=== PATIENT | female | born 1955 | race African-American/Black ===

== ENCOUNTER 2016-12-11 07:41 | Emergency (ER) | payer OTHER ==
[~2016-12-11] VITALS: Ht 165.1 cm; Wt 92.0 kg
[~2016-12-11 07:41] MED LIST: ACET325S8 PO; GLUC10TA3 PO; LOVA10TA PO; METF850T PO; ONDA4 PO; PRIL20CA PO; Z.0.UNKNOWN
[2016-12-11 07:43] VITALS: BP 184/91; PULSE 84; RESP 16; TEMP 98.4; O2SAT 98
[2016-12-11] MEDS ORDERED: LOVA10TA PO (08:03)
[2016-12-11] MEDS ORDERED: METF850T PO (08:03)
[2016-12-11] MEDS ORDERED: GLIP10TA6 PO (08:03)
--- NOTE | 2016-12-11 08:31 | PD ---
HPI Chief Complaint: Fall Time Seen by Provider: 08:23 Travel History International Travel<30 days: No Contact w/Intl Traveler<30days: No Traveled to known affect area: No History of Present Illness HPI 61yo F with PMH of DM presents to the ED with c/o left knee and hip pain s/p slip and fall 2 days ago. States her left knee bend backwards. Denies any head trauma, LOC, chest pain, sob, n/v, abdominal pain, focal weakness or numbness. Pt has been able to ambulate but with pain. Pt had previous ligament surgery in left knee. PFSH Past Medical History Arthritis: Yes Heart Rhythm Problems: No Cancer: No Cardiac Catheterization: No Cardiovascular Problems: Yes High Cholesterol: Yes Chest Pain: Yes Congestive Heart Failure: No Diabetes: Yes Patient Takes Glucophage: Yes Diminished Hearing: No Endocrine: Yes Gastrointestinal Disorders: Yes Genitourinary: No Hypertension: No Implanted Vascular Access Dvce: Yes Musculoskeletal: Yes Neurologic: Yes Psychiatric: No Reproductive: No Respiratory: No Migraines: Yes ?: Not Past Surgical History Coronary Artery Bypass Graft: No Gynecologic Surgery: Yes (TUBAL) Joint Replacement: Yes (LEFT KNEE) Other Surgery: Yes Family History Family Myocardial Infarction: Yes Social History Alcohol Use: No Tobacco Use: No Substance Use: No Allergies-Medications (Allergen,Severity, Reaction): Coded Allergies: No Known Allergies (Verified , 09/14/12) Reported Meds & Prescriptions Reported Meds & Active Scripts Active Reported Lovastatin 10 Mg Tab 10 Mg PO HS Glipizide 10 Mg Tab 10 Mg PO BIDAC Take 30 minutes before a meal Metformin (Metformin HCl) 850 Mg Tab 850 Mg PO TIDPC With meals Review of Systems Except as stated in HPI: all other systems reviewed are Neg Physical Exam Narrative GENERAL: 61yo F in mild distress. SKIN: Focused skin assessment warm/dry. HEAD: Atraumatic. Normocephalic. EYES: Pupils equal and round. No scleral icterus. No injection or drainage. ENT: No nasal bleeding or discharge. Mucous membranes pink and moist. NECK: Trachea midline. No JVD. CARDIOVASCULAR: Regular rate and rhythm. No murmur appreciated. RESPIRATORY: No accessory muscle use. Clear to auscultation. Breath sounds equal bilaterally. GASTROINTESTINAL: Abdomen soft, non-tender, nondistended. No rebound tenderness or guarding. MUSCULOSKELETAL: Left knee: Previous surgical scar. +TTP lateral aspect. Decreased ROM. Sensation intact. Distal pulses intact. NEUROLOGICAL: Awake and alert. No obvious cranial nerve deficits. Motor grossly within normal limits. Normal speech. PSYCHIATRIC: Appropriate mood and affect; insight and judgment normal. Data Data Last Documented VS Vital Signs Date Time Temp Pulse Resp B/P (MAP) Pulse Ox O2 Delivery O2 Flow Rate FiO2 12/11/16 07:43 98.4 84 16 184/91 (122) 98 Orders Orders Knee, Ltd (1 Or 2vws) (12/11/16 ) Acetamin-Hydrocod 325-5 Mg ([place] 5-325 (12/11/16 08:45) Hip, Uni(Ap&Lat) W Ap Pelvis (12/11/16 ) Ketorolac Inj (Toradol Inj) (12/11/16 11:00) MDM Medical Decision Making Medical Screen Exam Complete: Yes Emergency Medical Condition: Yes Interpretation(s) Last Impressions Knee X-Ray 12/11/16 0000 Signed Impressions: Service Date/Time: Sunday, December 11, 2016 09:00 - CONCLUSION: Degenerative change. Laurent Allan MD Hip and Pelvis X-Ray 12/11/16 0000 Signed Impressions: Service Date/Time: Sunday, December 11, 2016 08:56 - CONCLUSION: No acute disease. Laurent Allan MD Differential Diagnosis Fracture vs. contusion vs. arthritis Narrative Course 61yo F left knee pain and hip pain after falling 2 days ago. Pt is able to ambulate on it after. No other injuries. Xray left hip negative. Xray left knee showed degenerative change. Pt given toradol and lortab with improvement of pain. Pt has an immobilizer already. Instructed pt to follow up with PMD or orthopedic if pain persists. Diagnosis Primary Impression: Fall Qualified Codes: W19.XXXA - Unspecified fall, initial encounter Referrals: Dejuan Norris MD as needed Patient Instructions: General Instructions Departure Forms: Tests/Procedures Additional Instructions: Please follow up with orthopedic surgery for further evaluation if pain persists. Return to the ED if symptoms worsen. Med/Other Pt SpecificInfo: Prescription(s) given Scripts Hydrocodone-Acetaminophen (Lortab) 5-325 Mg Tab 1 TAB PO Q6H Y for PAIN, #7 TAB 0 Refills Prov: Chiqui Sams DO 12/11/16 Disposition: 01 DISCHARGE HOME Condition: Stable Chiqui Sams DO Dec 11, 2016 08:31
[2016-12-11] MEDS ORDERED: ACETAMINOPHEN/HYDROcodone 325 MG/5 MG TAB PO ONE (08:45)
--- NOTE | 2016-12-11 09:24 | RADRPT ---
EXAM DATE/TIME: 12/11/2016 08:56 [facility] COMPARISON: No previous studies available for comparison. INDICATIONS : Left anterior hip pain, fell MEDICAL HISTORY : Arthritis. SURGICAL HISTORY : Left knee ligament repair ENCOUNTER: Initial ACUITY: 3 days PAIN SCORE: 1/10 LOCATION: Left Hip FINDINGS: Examination of the left hip was performed with AP Pelvis. The primary and secondary trabecular patte rn of the femoral neck is intact. The hip joint is of normal width without significant sclerosis or bony hypertrophy. The acetabulum is grossly intact. There is mild hypertrophic change seen adjacent to the lateral aspect of the greater trochanter. Calcifications are seen in the pelvis likely related to phleboliths. CONCLUSION: No acute disease. Laurent Allan MD on December 11, 2016 at 9:21 Board Certified Radiologist. This report was verified electronically.
--- NOTE | 2016-12-11 09:25 | RADRPT ---
EXAM DATE/TIME: 12/11/2016 09:00 [facility] COMPARISON: No previous studies available for comparison. INDICATIONS : Left anterior knee pain and swelling, fell MEDICAL HISTORY : Arthritis. SURGICAL HISTORY : Left knee ligament repair ENCOUNTER: Initial ACUITY: 3 days PAIN SCORE: 5/10 LOCATION: Left knee FINDINGS: The knee joint is normally aligned. There is mild loss of joint space height medially. There is hyper trophic spurring seen throughout the knee at the patellofemoral, medial, and lateral joint compartmen ts. A significant effusion is not seen. No fracture seen. CONCLUSION: Degenerative change. Laurent Allan MD on December 11, 2016 at 9:22 Board Certified Radiologist. This report was verified electronically.
[2016-12-11] MEDS ORDERED: KETOROLAC TROMETHAMINE 60 MG/2 ML (IM) VIAL IM ONE (11:00)
[2016-12-11] MEDS ORDERED: HYDR-3533 PO (11:27)
== END 2016-12-11 12:07 | disposition home or self-care (01) ==
LOC: NEPC 07:41
DX: M25.562 Pain in left knee (principal); M25.552 Pain in left hip; E11.9 Type 2 diabetes mellitus without complications; E78.00 Pure hypercholesterolemia, unspecified; W18.30XA Fall on same level, unspecified, initial encounter
CPT/HCPCS: 73502; 73560; 96372; 99284; J1885